=== PATIENT | female | born 1955 | race Caucasian/White ===

== ENCOUNTER → 2020-04-27 08:27 | Outpatient (CLI) | payer MEDICARE, SELFPAY ==
--- NOTE | ~2020-04-27 | MR_ITS ---
EXAMINATION: MR foot LT wo con DATE: 04/27/2020 10:18 INDICATION: Benign neoplasm of connective and other soft tissue. Enlarging left foot lump. TECHNIQUE: Magnetic resonance imaging (MRI) of the left foot was performed without intravenous contra st. Sequences included sagittal T1-weighted FSE, sagittal fluid sensitive FSE STIR, coronal PD-weight ed FS FSE, coronal T1-weighted FSE, axial PD-weighted FS FSE, and axial PD-weighted FSE. COMPARISON: None FINDINGS: Bone alignment is normal. No fracture or pathologic marrow replacing process. Polyarticular osteoarth ritis, severe at the second metatarsophalangeal joint with associated remodeling of the articular jason faces with prominent subarticular edema and with small to moderate size marginal osteophytes and smal l joint effusion. Moderate severity osteoarthritis at the first metatarsophalangeal joint and at the second tarsal metatarsal joint. Mild osteoarthritis at the tibiotalar, talonavicular and majority the remaining joints in the mid and forefoot. There is a multiloculated ganglion cyst arising from the m edial side of the first tarsal metatarsal joint which extends dorsal to the medial cuneiform which me asures approximately 3.0 cm proximal to distal, 2.0 cm medial to lateral and 7 mm in maximal thicknes s. This immediately underlies the marker indicating the lesion of concern. There is an additional lar karol multilobulated ganglion cyst arising from the posterior recess of the ankle which extends caudall y along the medial side of the calcaneus within or along the deep margin of the tarsal tunnel. This g anglion cyst measures approximately 3.3 cm dorsal plantar, 2.6 cm anteroposteriorly and up to 1.1 cm in medial to lateral width. Finally there are smaller ganglion cysts measuring 8 x 3 x 4 mm along the dorsal/medial aspect of the first distal phalanx arises from the distal interphalangeal joint and 9 x 6 x 3 mm lung the lateral neck of the first metatarsal rising from the first metatarsophalangeal gabrielle int. The visualized portions of the flexor and extensor tendons are normal. Small amount fluid along the tibialis posterior, flexor digitorum longus and peroneal tendon sheaths consistent with mild teno synovitis. The Lisfranc ligament and collateral ligament complexes at the metatarsophalangeal and int erphalangeal joints appear normal. Normal muscle bulk and signal of the intrinsic musculature of the foot. No abnormal masses identified. IMPRESSION: 1. Several ganglion cysts in the left foot as detailed above. This includes a ganglion cyst arising f rom the first tarsal metatarsal joint which extends dorsal to the medial cuneiform and likely account s for the palpable abnormality of concern. No abnormal masses identified. 2. Polyarticular osteoarthritis, severe at the second and moderate at the first metatarsophalangeal j oints and mild at multiple additional joints throughout the left foot. Reviewed, dictated and finalized at location A. IMPRESSION: 1. Several ganglion cysts in the left foot as detailed above. This includes a g anglion cyst arising from the first tarsal metatarsal joint which extends dorsa l to the medial cuneiform and likely accounts for the palpable abnormality of c oncern. No abnormal masses identified. 2. Polyarticular osteoarthritis, severe at the second and moderate at the first metatarsophalangeal joints and mild at multiple additional joints throughout t he left foot.
== END ==
PROVIDERS: PCP Internal Medicine; Visit Provider Podiatrist Foot & Ankle Surgery
DX: D21.22 Benign neoplasm of connective and other soft tissue of left lower limb, including hip (principal); M21.6X1 Other acquired deformities of right foot; M25.775 Osteophyte, left foot; M19.072 Primary osteoarthritis, left ankle and foot
CPT/HCPCS: 73718

== ENCOUNTER 2022-07-27 01:11 | Day surgery (SDC) | payer MEDICARE, SELFPAY ==
[2022-07-19 11:08] VITALS: BMI 24.2
[2022-07-27 09:25] VITALS: BP 140/80; PULSE 73; RESP 18; TEMP 35.8; O2SAT 100; BMI 23.3
[2022-07-27] MEDS: LACTATED RINGERS 1,000 ML 150 ML IV CONT (09:47)
--- NOTE | 2022-07-27 09:49 | WPDANESEPPF ---
Anes - Initial Pre Proc Eval Procedure: Operation Date: 07/27/22 11:00 Proposed Procedures p Screening Colonoscopy - Gabe Restrepo MD Date/Time: 07/27/22 09:49 Surgeon: Gabe Restrepo MD Pre Op Diagnosis: Hx of colon polyps Patient Data Age: 67 Gender: F Height: 1.63 m Weight: 61.7 kg Last Vital Signs Temp 35.8 C L 07/27/22 09:25 Pulse 73 07/27/22 09:25 Resp 18 07/27/22 09:25 BP 140/80 07/27/22 09:25 Pulse Ox 100 07/27/22 09:25 O2 Del Method Room Air 07/27/22 09:25 Allergies Allergy/AdvReac Type Severity Reaction Status Date / Time codeine Allergy Unknown Nausea and Verified 07/27/22 09:34 Vomiting Penicillins AdvReac Unknown Difficulty Verified 07/27/22 09:34 Breathing Home Medications Medication Instructions Recorded Confirmed Type atorvastatin 20 mg tablet 20 mg PO DAILY 04/27/22 07/27/22 History meloxicam 15 mg tablet 15 mg PO DAILY 04/27/22 07/27/22 History medroxyprogesterone 2.5 mg tablet 2.5 mg PO DAILY #90 tabs 06/15/22 07/27/22 Rx (Provera) estradiol 1 mg tablet 1 mg PO DAILY #90 tabs 06/22/22 07/27/22 Rx calcium carbonate 500 mg calcium 500 mg PO DAILY 07/19/22 07/27/22 History (1,250 mg) tablet omega-3 fatty acids 1,000 mg PO DAILY 07/19/22 07/27/22 History Patient hx anesthesia problems: none Family hx anesthesia problems: none Results Review: All pre-operative results and documents have been reviewed as part of the pre-operative evaluation. [facility] Past Medical History Medical History (Updated 04/27/22 @ 10:26 by Thiago Echols MD) Arthritis High cholesterol Lumbar radiculopathy, chronic Sciatica Screening mammogram, encounter for Surgical History Surgical History History of back surgery (~2010) History of breast biopsy bilateral breast biopsy 1983, 1990 History of (1984) History of carpal tunnel surgery 1989, 1991 History of dilation and curettage 1974, 1980, 1981, 1983 History of discectomy (04/21/14) History of ear, nose, and throat (ENT) surgery (~1968) hole in right eardrum History of elbow surgery 1989 tennis elbow History of hand surgery 2014 right thumb nerve reroute for trigger finger 2016 right ring finger trigger release, right thumb trigger release and right wrist release History of shoulder replacement (10/06/19) left shoulder History of surgery on arm 1970 broke left arm History of tubal ligation (~1983) Family History Family History Father Heart disease Mother Motor vehicle accident (victim) Social History Social History (Updated 04/27/22 @ 09:49 by CALVIN Murillo) Smoking status: Former smoker Tobacco type: cigarettes Alcohol intake: current Drinks per week: 4 Alcohol use details: 2-3 socially Substance use: current Substance use type: marijuana Other substance usage details: medical for joint and back pain Living arrangements: with family Additional living arrangements comments: Gender identity (if verbalized by the patient): Female Sexual Orientation (if Verbalized by the Patient): Straight or Heterosexual Spiritual care concerns: No Anes - Eval Final PreProcedure Day of Procedure 07/27/22 09:49 Patient weight: normal Heart: regular rate and rhythm Lungs: clear to auscultation and normal air movement Airway: Mallampati scale class II Neurological: alert and oriented Last oral intake: >/= 8 hours ASA classification: II Emergent: no Anesthetic plan: proceed Anesthesia type and monitoring: general GIVS Results Review: All pre-operative results and documents have been reviewed as part of the pre-operative evaluation. Informed Consent: The patient's anesthetic plan and its attendant risks and benefits were discussed with the patient/family/POA. Questions were solicited and answers provided to the satisfaction o
--- NOTE | 2022-07-27 10:26 | PM.HPGS ---
History of Present Illness History of Present Illness Consent: Risks, benefits, and alternatives have been discussed and questions answered. Patient agrees to proceed with procedure. Chief complaint: Hx of colon polyps Narrative: Jenny Blackmon is a 67 year old female Presents for screening colonoscopy. Patient's current weight appetite and bowel movements are normal. Patient denies abdominal pain. She has had no bleeding. Family history noncontributory. Patient had a colonoscopy in [address] Caldwell that revealed a benign hyperplastic polyp. Review of Systems Review of Systems: Review of systems noncontributory. [facility] Past Medical History Medical History (Updated 07/27/22 @ 10:27 by Gabe Restrepo MD) Arthritis High cholesterol Lumbar radiculopathy, chronic Sciatica Screening mammogram, encounter for Surgical History Surgical History History of back surgery (~2010) History of breast biopsy bilateral breast biopsy 1983, 1990 History of (1984) History of carpal tunnel surgery 1989, 1991 History of dilation and curettage 1974, 1980, 1981, 1983 History of discectomy (04/21/14) History of ear, nose, and throat (ENT) surgery (~1968) hole in right eardrum History of elbow surgery 1989 tennis elbow History of hand surgery 2014 right thumb nerve reroute for trigger finger 2016 right ring finger trigger release, right thumb trigger release and right wrist release History of shoulder replacement (10/06/19) left shoulder History of surgery on arm 1971 broke left arm History of tubal ligation (~1983) Family History Family History Father Heart disease Mother Motor vehicle accident (victim) Social History Social History (Updated 04/27/22 @ 09:49 by CALVIN Murillo) Smoking status: Former smoker Tobacco type: cigarettes Alcohol intake: current Drinks per week: 4 Alcohol use details: 2-3 socially Substance use: current Substance use type: marijuana Other substance usage details: medical for joint and back pain Living arrangements: with family Additional living arrangements comments: Gender identity (if verbalized by the patient): Female Sexual Orientation (if Verbalized by the Patient): Straight or Heterosexual Spiritual care concerns: No Meds Home Medications and Allergies Home Medications Medication Instructions Recorded Confirmed Type atorvastatin 20 mg tablet 20 mg PO DAILY 04/27/22 07/27/22 History meloxicam 15 mg tablet 15 mg PO DAILY 04/27/22 07/27/22 History medroxyprogesterone 2.5 mg tablet 2.5 mg PO DAILY #90 tabs 06/15/22 07/27/22 Rx (Provera) estradiol 1 mg tablet 1 mg PO DAILY #90 tabs 06/22/22 07/27/22 Rx calcium carbonate 500 mg calcium 500 mg PO DAILY 07/19/22 07/27/22 History (1,250 mg) tablet omega-3 fatty acids 1,000 mg PO DAILY 07/19/22 07/27/22 History Allergies Allergy/AdvReac Type Severity Reaction Status Date / Time codeine Allergy Unknown Nausea and Verified 07/27/22 09:34 Vomiting Penicillins AdvReac Unknown Difficulty Verified 07/27/22 09:34 Breathing Vital Signs Vital Signs - 24 hr 07/27/22 09:25 Temperature 96.5 F L Pulse Rate 73 Respiratory Rate 18 Blood Pressure 140/80 Pulse Oximetry 100 Oxygen Delivery Room Air Exam Narrative: Physical exam reveals patient to be alert. Vital signs stable. HEENT exam is unremarkable. Patient is anicteric. Lungs are clear to auscultation and percussion. Heart is without murmur or extra sounds. Abdomen bowel sounds present soft nontender with no organomegaly. Digital external rectal exam normal. Assessment and Plan Assessment and plan (1) Encounter for screening colonoscopy: Code(s): Z12.11 - Encounter for screening for malignant neoplasm of colon Status: Acute Assessment and Plan:
[2022-07-27] MEDS: SIMETHICONE ORAL SUSPENSION 20 MG/0.3 ML 30 ML BOTTLE 0.6 ML IRRIGATION (11:08)
[2022-07-27 11:26] VITALS: BP 122/76; PULSE 79; RESP 21; O2SAT 100
[2022-07-27 11:36] VITALS: BP 134/80; PULSE 75; RESP 20; O2SAT 100
[2022-07-27 11:46] VITALS: BP 148/84; PULSE 68; RESP 18; O2SAT 100
== END 2022-07-27 11:59 | disposition home or self-care (01) ==
PROVIDERS: PCP Internal Medicine; Visit Provider Internal Medicine Gastroenterology
PROC: 0DJD8ZZ Inspection of Lower Intestinal Tract, Via Natural or Artificial Opening Endoscopic (ICD-10-PCS; CPT 45378; principal; 2022-07-27 11:00)
DX: Z12.11 Encounter for screening for malignant neoplasm of colon (principal); K63.5 Polyp of colon; E78.00 Pure hypercholesterolemia, unspecified; F12.90 Cannabis use, unspecified, uncomplicated; Z87.891 Personal history of nicotine dependence
CPT/HCPCS: 45385; 88305; J2704; J7120

== ENCOUNTER 2022-10-13 10:08 | Outpatient (CLI) | payer MEDICARE, SELFPAY ==
[2022-10-13 10:21] LABS: Basophils Absolute Auto 0.1 K/mm3 (0.0-0.1); Basophils Percent Auto 0.8 % (0.2-1.2); Eosinophils Absolute Auto 0.3 K/mm3 (0-0.3); Eosinophils Percent Auto 5.2 % (0-4.4); Hematocrit 40.2 % (37.0-47.0); Hemoglobin 13.4 g/dL (12.0-15.0); Immature Granulocyte Absolute 0.01 K/mm3 (0.00-0.031); Immature Granulocyte Percent A 0.2 % (0-0.5); Lymphocytes Absolute Auto 2.72 K/mm3 (0.9-3.2); Lymphocytes Percent Auto 44.1 % (18.3-44.2); Mean Corpuscular HGB Conc 33.3 g/dl (32-36); Mean Corpuscular Hemoglobin 30.3 pg (26-34); Mean Platelet Volume 9.1 fl (7.4-10.4); Monocytes Absolute Auto 0.5 K/mm3 (0.1-0.6); Monocytes Percent Auto 8.4 % (2.6-8.5); Neutrophils Absolute Auto 2.6 K/mm3 (1.3-6.7); Neutrophils Percent Auto 41.3 % (45.5-73.1); Platelet Count Result 208 k/mm3 (150-375); Red Blood Count 4.42 M/mm3 (4.2-5.4); Red Cell Distribution Width 12.7 % (11.5-14.5); White Blood Count 6.2 K/mm3 (4.5-10.0)
[2022-10-13 11:43] LABS: Erythrocyte Sedimentation Rate 18 mm/hr (0-20)
[2022-10-13 11:47] LABS: Alanine Aminotransferase 21 U/L (6-35); Alkaline Phosphatase 70 U/L (38-126); Anion Gap 5 mmol/L (8-16); Aspartate Amino Transferase 23 U/L (14-36); Bilirubin,Total 0.5 mg/dL (0.2-1.3); Blood Urea Nitrogen 17 mg/dL (7-17); Calcium 9.4 mg/dL (8.4-10.2); Carbon Dioxide 31 mmol/L (22-30); Chloride 105 mmol/L (98-107); Estimated Glomerular Filt Rate > 60; Glucose 93 mg/dL (65-110); Potassium 3.8 mmol/L (3.4-5.0); Sodium 141 mmol/L (137-145)
[2022-10-13 11:56] LABS: CRP < 0.5 mg/dL (<1.0)
[2022-10-17 21:02] LABS: Anti Cyclic Citrullinated Pept <16 Units (<20)
== END 2022-10-13 10:09 | disposition home or self-care (01) ==
LOC: ANHLAB 10:10
PROVIDERS: PCP Internal Medicine; Visit Provider Internal Medicine
DX: M19.90 Unspecified osteoarthritis, unspecified site (principal)
CPT/HCPCS: 36415; 80053; 85025; 85652; 86038; 86140; 86200

== ENCOUNTER 2022-10-18 10:13 | Outpatient (CLI) | payer MEDICARE, SELFPAY ==
--- NOTE | ~2022-10-18 | XR_ITS ---
Bilateral Hands Technique: Bilateral PA, oblique, and lateral views, and ball-catcher's view were obtained. Clinical History: Arthritis Findings: No acute fracture or dislocation is seen. Patient is status post prior resection of the lef t trapezium. Minimal degenerative change of the DIP joints noted bilaterally. Soft tissues are unrema rkable. Impression: Minimal degenerative change of the DIP joints bilaterally. Status post prior resection of the left trapezium. Reviewed, dictated and finalized at location M. TRICAL CONTRACTOR Impression: Minimal degenerative change of the DIP joints bilaterally. Status post prior resection of the left trapezium.
--- NOTE | ~2022-10-18 | XR_ITS ---
Left foot Technique: AP and lateral standing views were obtained. Clinical History: Osteoarthritis Findings: No acute fracture or dislocation is seen. Osseous alignment is anatomic. Probable mild dege nerative change at the second MTP joint. Soft tissues are unremarkable. Impression: Mild degenerative change of the second MTP joint. Reviewed, dictated and finalized at [facility]. E COORDINATOR Impression: Mild degenerative change of the second MTP joint.
--- NOTE | ~2022-10-18 | XR_ITS ---
Right foot Technique: AP and lateral standing views were obtained. Clinical History: Osteoarthritis Findings: No acute fracture or dislocation is seen. Osseous alignment is anatomic. Joint spaces are p reserved without erosive or degenerative change. Soft tissues are unremarkable. Impression: Unremarkable right foot radiographs. Reviewed, dictated and finalized at location . OPERATOR Impression: Unremarkable right foot radiographs.
== END 2022-10-18 10:14 | disposition home or self-care (01) ==
LOC: ANHIMG 10:17
PROVIDERS: PCP Internal Medicine; Visit Provider Internal Medicine
DX: M19.90 Unspecified osteoarthritis, unspecified site (principal); M19.072 Primary osteoarthritis, left ankle and foot
CPT/HCPCS: 73130; 73620

== ENCOUNTER 2024-10-20 10:42 | Outpatient (CLI) | payer MEDICARE, SELFPAY ==
--- NOTE | ~2024-10-20 | XR_ITS ---
EXAMINATION: XR shoulder RT min 2V, XR shoulder LT min 2V DATE: 10/20/2024 11:03 INDICATION: Bilateral shoulder pain TECHNIQUE: 1. AP internally and externally rotated, AP oblique externally rotated and transscapular Y views of t he right shoulder were obtained. 2. AP internally and externally rotated, AP oblique externally rotated and transscapular Y views of t he left shoulder were obtained. COMPARISON: None FINDINGS: Right shoulder: Normal alignment. No fracture. Mild glenohumeral osteoarthritis with mild nonuniform joint space robert rowing. Mild to moderate right acromioclavicular osteoarthritis with small inferiorly directed osteop hytes. Soft tissues are unremarkable. Right lung is clear with no pleural effusion or pneumothorax. H eart size is normal. Left shoulder: Left total shoulder arthroplasty which appears well seated in near-anatomic alignment. No fracture. M ild left acromioclavicular osteoarthritis. Left lung is clear with no pleural effusion or pneumothora x. IMPRESSION: 1. Polyarticular osteoarthritis at both shoulders, mild left acromioclavicular, right humeral joints and mild to moderate severity at the right acromioclavicular joint. 2. Expected appearance of a left total shoulder arthroplasty. Reviewed, dictated and finalized at location A. CUTTER MACHINE IMPRESSION: 1. Polyarticular osteoarthritis at both shoulders, mild left acromioclavicular, right humeral joints and mild to moderate severity at the right acromioclavicu lar joint. 2. Expected appearance of a left total shoulder arthroplasty.
== END 2024-10-20 10:43 | disposition home or self-care (01) ==
LOC: MICIMG 10:44
PROVIDERS: PCP Internal Medicine; Visit Provider Anesthesiology Pain Medicine
DX: M25.511 Pain in right shoulder (principal); M25.512 Pain in left shoulder; Z96.612 Presence of left artificial shoulder joint
CPT/HCPCS: 73030

== ENCOUNTER 2025-01-19 12:37 | Outpatient (CLI) | payer MEDICARE, SELFPAY ==
--- NOTE | ~2025-01-19 | MR_ITS ---
MRI of the cervical spine Clinical History: Anesthesia of skin Technique: Axial T2-weighted and gradient images, and sagittal T1-weighted, T2-weighted, and STIR pushpa ges were acquired. Findings: No fracture or sublocation seen. There is mild reversal of the normal cervical lordosis. No suspicious bone marrow signal abnormality seen. At C2-C3, there is minimal disc ossify complex and bilateral facet arthropathy. There is probable lef t neural foraminal narrowing, minimal. Right neural foramen preserved. No canal stenosis or cord comp ression. At C3-C4 there is mild degenerative disc narrowing with mild disc osteophyte complex. There is mild b ilateral facet arthropathy. Probable minimal bilateral neural foraminal narrowing. No canal stenosis or cord compression. At C4-C5, there is degenerative distended. There is disc osteophyte complex with moderate canal steno sis and ventral cord flattening/compression. There is bilateral neural foraminal narrowing, moderate to severe degree. At C5-C6, there is moderate to advanced degenerative distended. There is central disc osteophyte comp cathi or disc extrusion with moderate to severe canal stenosis and cord compression. There is severe bi lateral neural foraminal narrowing. At C6-C7, there is moderate degenerative distended. There is disc osteophyte complex with moderate ca nal stenosis and cord compression. There is bilateral neural foraminal narrowing. No abnormal signal seen in the spinal cord. Paravertebral soft tissues are unremarkable. Impression: Severe degenerative spondylosis, especially at C4-C5, C5-C6, and C6-C7, with significant canal stenos is and cord compression at these levels. Multilevel neural foraminal narrowing present. Please see de tails above. Reviewed, dictated and finalized at [facility]. Impression: Severe degenerative spondylosis, especially at C4-C5, C5-C6, and C6-C7, with si gnificant canal stenosis and cord compression at these levels. Multilevel neura l foraminal narrowing present. Please see details above.
== END 2025-01-19 12:38 | disposition home or self-care (01) ==
PROVIDERS: PCP Internal Medicine; Visit Provider Orthopaedic Surgery
DX: R20.0 Anesthesia of skin (principal); R20.2 Paresthesia of skin; M47.22 Other spondylosis with radiculopathy, cervical region
CPT/HCPCS: 72141

== ENCOUNTER 2025-07-17 10:07 | Outpatient (CLI) | payer MEDICARE, SELFPAY ==
--- OUTSIDE RECORDS SUMMARY | 2025-07-17 10:51 | XMS_ITS | Encounter Summary ---
Author Organization [facility] Health Address [address] [place] [address] Care Team Providers Care Repairer Pump Name Role Phone Theodora Juarez RN Unavailable [phone] Malcolm Varma MD Primary Care Provider Encounter Details Date Type Department Care Team (Late st Contact Info) Description 06/24/2019 [facility] Outpatient Visit EXTERNAL NON-[facility] DEPT Unknown, Provider Social History Tobacco Use Types Packs/Day Years Used Date Smoking Tobacco: Former Cigarettes Q uit: 04/21/1999 Smokeless Tobacco: Never Alcohol Use Standard Drinks/Week Comments No 0 (1 standard drink = 0.6 oz pur e alcohol) Comments No Sex and Gender Information Value Date Recorded Sex Assigned at Not on file Legal Sex Female 1:35 PM CDT Gender Identity Not on file Sexual Orientation Not on file Occupation Industry Job Start Date Job End Date NOT EMPLOYED Not on file Not on file Not on file documented as of this encounter Functional Status * Is person deaf or have serious hearing difficulty? Answer Date of Assessment Author No 04/21/2014 3:00 PM BLADIMIRT Jeet Sotomayor RN * Is person blind or have serious difficulty seeing? Answer Date of Assessment Author No 04/21/2014 3:00 PM CDT Jeet Sotomayor RN * Does person have serious difficulty walking/climbing stairs? Answer Date of Assessment Author Yes 04/21/2014 3:00 PM BLADIMIRT Jeet Sotomayor RN * Does person have difficulty dressing/bathing? Answer Date of Assessment Author No 04/21/2014 3:00 PM Jeet Mercer RN * Does person have difficulty doing errands alone? Answer Date of Assessment Author No 04/21/2014 3:00 PM Jeet Mercer RN documented as of this encounter Mental Status * Does person have difficulty concentrating/remembering/making decisions? Answer Entry Date Author No 04/21/2014 3:00 PM Jeet Mercer RN documented in this encounter Plan of Treatment Not on file documented as of this encounter Visit Diagnoses Not on filedocumented in this encounter Care Teams Repairer Pump Relationship Specialty Start Date End Date Malcolm Varma MD PCP - General Internal Medicine 08/10/17 Theodora Juarez RN Bank Teller Machine Mechanic 04/21/14 documented as of this encounter
--- OUTSIDE RECORDS SUMMARY | 2025-07-17 10:51 | XMS_ITS | Encounter Summary ---
Author Organization [facility] Health Address [address] [place] [address] Care Team Providers Care Test Desk Trouble Locator Name Role Phone Theodora Juarez RN Unavailable [phone] Malcolm Varma MD Primary Care Provider [phone] Encounter Details Date Type Department Care Team (Late st Contact Info) Description 04/22/2019 [facility] Outpatient Visit EXTERNAL NON-[facility] DEPT Unknown, [...] on filedocumented in this encounter Care Teams Test Desk Trouble Locator Relationship Specialty Start Date End Date Malcolm Varma MD PCP - General Internal Medicine 08/10/17 Theodora Juarez RN Design Engineering Manager 04/21/14 documented as of this encounter
--- OUTSIDE RECORDS SUMMARY | 2025-07-17 10:51 | XMS_ITS | Clinical Summary ---
Author Organization [facility] Address [address] [place] [address] Care Team Providers Care Laborer Landscape Name Role Phone Theodora Juarez RN Unavailable [phone] Malcolm Varma MD Primary Care Provider [phone] Source Comments [facility],non-owned Affiliates and Associated Physician Practices is amultiple site organization consisting of ambulatory clinics and hospital sitesin [place], [place], [place] and [place]. This disclosure is being madepursuant to the Care Everywhere program and may not contain all information available regarding this patient. Last updated 18.[facility] Allergies Active Allergy Reactions Criticality Noted Date Comments Codeine Diarrhea,Nausea and/ or Vomiting,Headache 03/31/2013 Penicillins Shortness of Breath,Itching,Swelling High 03/31/2013 Medications * Be aware that medications may not be up to date on this document. Alwaysverify current medications with the patient. naproxen (NAPROSYN) 500 MG tablet Take 500 mg by mouth 2 times daily. Active diclofenac sodium EC (VOLTAREN) 50 MG tablet Take 1 Tab by mouth 2 times daily 60 Tab 11 06/14/2015 Active Potassium (POTASSIMIN PO) Acti ve Cholecalciferol ([employer] VIT D 5000 HIGH-POTENCY PO) Active atorvastatin (LIPITOR) 20 MG tablet Take 20 mg by mouth once daily Active LOPREEZA 1-0.5 MG tablet 01/20/2019 Active loratadine (CLEAR-ATADINE) 10 MG tablet Take 10 mg by mouth once daily Active BLACK CURRANT SEED OIL PO Active Multiple Vitamins-Minera ls (CENTRUM SILVER PO) Active CBD oil Active CBD product (various) Active pregabalin (LYRICA) 25 MG capsule Take 1 capsule by mouth 2 times daily 60 capsule 1 05/08/2019 Active Active Problems Problem Noted Date Diagnosed Date Low back pain 04/07/2013 Overview (07/18/2015): Family History Medical History Relation Name Comments CAD (Coronary Artery Disease) Father Heart Failure Father Relation Name Status Comments Brother 1 Alive Brother 2 Alive Father Mother Sister 1 Alive Sister 2 Social History Tobacco Use Types Packs/Day Years [...] file Not on file Not on file Last Filed Vital Signs Vital Sign Reading Time Taken Comments Blood Pressure 122/74 08/21/2017 12:21 PM FLOORWORKER DISTRIBUTOR Pulse 85 08/21/2017 12:21 PM FLOORWORKER DISTRIBUTOR Temperature 36.9 C (98.4 F) 04/23/2014 7:54 AM CDT Respiratory Rate 16 08/21/2017 12:21 PM FLOORWORKER DISTRIBUTOR Oxygen Saturation 99% 08/21/2017 12:21 PM FLOORWORKER DISTRIBUTOR Inhaled Oxygen Concentration - - Weight 65.8 kg (145 lb) 04/08/2019 1:46 PM CDT Height 167.6 cm (5' 6) 04/08/2019 1:46 PM CDT Body Mass Index 23.4 04/08/2019 1:46 PM CDT Plan of Treatment Health Maintenance Due Date Last Done Comments BONE DENSITY TESTING 1955 COLOGUARD (AGES 45-75) - COLON CA SCREENING 1957 COLON MONITORING 1957 COLONOSCOPY - COLON CA SCREENING 1957 CT COLONOGRAPHY - COLON CA SCREENING 1957 Colorectal Cancer Screening 1957 FIT - COLON CA SCREENING 1957 FLEX SIG - COLON CA SCREENING 1957 MAMMOGRAM 1957 HEPATITIS C SCREENING 04/25/1975 DTAP/TDAP/TD VACCINES (1 - Tdap) 1976 PNEUMOCOCCAL VACCINE 50+ (1 of 1 - PCV) 2007 ZOSTER VACCINE (1 of 2) 2007 DEPRESSION SCREENING 09/10/2024 COVID-19 VACCINE (1 - season) 2025 INFLUENZA VACCINE (#1) 2025 9, 07/11/2018, 07/17/2017, Additional history exists Respiratory Syncytial Virus (RSV) Vaccine Pt: or over 60 yrs (1 - 1-dose 75+ series) 2032 HEPATITIS B VACCINE Aged Out No longe r eligible based on patient's age to complete this topic HIB VACCINE Aged Out No longer eligi ble based on patient's age to complete this topic HPV VACCINE Aged Out No longer eligi ble based on patient's age to complete this topic MENINGOCOCCAL (Group B) VACCINE SHARED DECISION-MAKING Aged Out No longer eligible based on patient's age to complete this topic MENINGOCOCCAL GROUPS A/C/Y/W VACCINE Aged Out No longer eligible based on patient's age to complete this topic Insurance AETNA [facility] Care Address: [facility] [id number] [place] [phone] A[employer] [place] PREFERRED A[employer] ANTH Advance Directives * Full Code (Latest Code Status on File) Date Activated Date Inactivated Comments 04/21/2014 2:29 PM 04/23/2014 11:04 AM Care Teams Laborer Landscape Relationship Specialty Start Date End Date Malcolm Varma MD PCP - General Internal Medicine 08/10/17 Theodora Juarez, RN Heat Regulator 04/21/14
[2025-07-17 11:07] LABS: CRP < 0.5 mg/dL (<1.0)
[2025-07-18 12:08] LABS: Anti-CCP Ab, IgG/IgA 7 units (0-19)
[2025-07-21 15:09] LABS: ANA by IFA Rfx Titer/Pattern Positive (.); ANA by IFA Rfx YES YES
== END 2025-07-17 10:08 | disposition home or self-care (01) ==
PROVIDERS: PCP Internal Medicine; Visit Provider Orthopaedic Surgery
DX: M79.641 Pain in right hand (principal); M79.642 Pain in left hand; R20.0 Anesthesia of skin; R20.2 Paresthesia of skin
CPT/HCPCS: 36415; 85652; 86038; 86140; 86200; 86364; 86430

== ENCOUNTER 2025-08-03 21:01 | Emergency (ER) | payer MEDICARE, SELFPAY ==
--- NOTE | ~2025-08-03 | CT_ITS ---
CT abdomen pelvis w con Clinical History: Colitis Comparison: None Technique: Axial images lung bases to symphysis pubis 100 mL Omnipaque 350 Coronal, sagittal reformats CT images acquired with automatic exposure control for dose reduction DLP: 433 mGy-cm Findings: Lung bases: Small atelectasis or airspace disease lingula. Visualized heart and pericardium: Coronary artery calcification. Liver: Steatosis. Mild intrahepatic biliary ductal dilatation after cholecystectomy. Gallbladder: Removed. Spleen: Unremarkable. Pancreas: Unremarkable. Adrenal glands: Unremarkable. Kidneys: Right kidney- No hydronephrosis. No renal stones. Left kidney- No hydronephrosis. No renal stones. Distal esophagus/stomach: Unremarkable. Small bowel loops: Normal caliber and wall thickness. Colon: Diverticula. Apparent mild diffuse wall thickening but under distended. Normal RLQ appendix. Nodes: No enlarged nodes. Peritoneum: No ascites. No free air. Urinary bladder: Unremarkable. Uterus: Unremarkable. Adnexa: No masses. Bones: No acute bony abnormality. Soft tissues: Unremarkable. Aorta: No aneurysm or dissection. Atherosclerotic disease. IVC: Unremarkable. Main portal vein/SMV/splenic vein: Patent. IMPRESSION: 1. Suspect mild colitis. 2. Additional findings as above. Reviewed, dictated and finalized at location R. 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
--- NOTE | ~2025-08-03 | XR_ITS ---
EXAMINATION: XR chest 2V DATE: 08/03/2025 21:36 INDICATION: Epigastric pain. TECHNIQUE: Frontal and lateral views of the chest were obtained. COMPARISON: None. FINDINGS: Heart size is normal. Lungs are clear of acute processes. Significant scoliosis of the lumbar spine. IMPRESSION: 1. No acute pulmonary findings. Reviewed, dictated and finalized at location T. S ANALYST
[2025-08-03 21:04] VITALS: BP 127/68; PULSE 83; RESP 16; TEMP 36.4; O2SAT 100
--- NOTE | 2025-08-03 21:09 | ECG_ITS ---
Test Date: 2025-08-03 21:14:55 Measurements Intervals [place] Rate: 71 P: 31 NH: 144 QRS: -41 QRSD: 85 T: 26 QT: 365 QTc: 398 Interpretive Statements SINUS RHYTHM LEFTWARD AXIS NONSPECIFIC T-WAVE ABNORMALITY No previous ECG available for comparison Electronically Signed On 08-04-2025 05:54:21 CHEMICALS FERMENTATION OPERATOR by Ricardo Hinojosa D.O
[2025-08-03 21:28] LABS: Hematocrit 39.9 % (37.0-47.0); Hemoglobin 13.5 g/dL (12.0-15.0); Immature Granulocyte Percent A 0.2 % (0-0.5); Lymphocytes Absolute Auto 1.09 K/mm3 (0.9-3.2); Mean Corpuscular HGB Conc 33.8 g/dl (32-36); Mean Corpuscular Hemoglobin 30.1 pg (26-34); Mean Corpuscular Volume 89.1 fl (80-100); Nucleated Red Blood Cells Absolute Auto 0.000 K/mm3 (0.0-0.012); Nucleated Red Blood Cells Perc 0.0 % (0.0-0.2); Platelet Count Result 144 k/mm3 (150-375); Red Blood Count 4.48 M/mm3 (4.2-5.4); White Blood Count 4.4 K/mm3 (4.5-10.0)
[2025-08-03 21:39] LABS: Alanine Aminotransferase 29 U/L (6-35); Albumin Level 4.1 g/dL (3.5-5.1); Alkaline Phosphatase 79 U/L (38-126); Anion Gap 8 mmol/L (4-12); Aspartate Amino Transferase 39 U/L (14-36); Bilirubin,Total 0.4 mg/dL (0.2-1.3); Blood Urea Nitrogen 14 mg/dL (7-17); Calcium 8.6 mg/dL (8.4-10.2); Carbon Dioxide 23 mmol/L (22-30); Chloride 103 mmol/L (98-107); Estimated CRCL calculation 74 ml/min; Estimated Glomerular Filt Rate > 60; Glucose 101 mg/dL (65-110); Potassium 3.2 mmol/L (3.4-5.0); Sodium 134 mmol/L (137-145); Total Protein 7.5 g/dL (6.3-8.2)
[2025-08-03 21:40] LABS: INR 1.1; Prothrombin Time 14.1 Seconds (11.1-14.7)
[2025-08-03 21:48] LABS: Partial Thromboplastin Time 26.5 Seconds (22.3-36.8)
[2025-08-03 21:51] LABS: Troponin I < 0.012 ng/mL (0.000-0.034)
[2025-08-03 22:33] VITALS: BP 106/58; PULSE 64
[2025-08-03 22:34] VITALS: BP 128/66; PULSE 81
[2025-08-03 22:35] VITALS: BP 119/80; PULSE 72
[2025-08-03 22:48] VITALS: BP 118/80; PULSE 67; RESP 16; TEMP 37.2; O2SAT 97
[2025-08-03 23:15] VITALS: BP 128/61; PULSE 72; RESP 14; O2SAT 98
--- NOTE | 2025-08-03 23:45 | ED.ABDPAIN ---
HPI - Abdominal Pain General Chief Complaint: GI Bleed Stated Complaint: bleeding in stool/N/V/LILLY Time Seen by Provider: 08/03/25 23:16 History of Present Illness HPI narrative: 70-year-old female with history of arthritis presenting to the emergency department today with 2 days of nausea vomiting followed by upper abdominal cramping and then today having some bowel movements that had blood in it. Denies any pain during the bloody bowel movements but notices that she had some blood in the toilet bowl admixed with stool that was loose. Endorses some cramping upper abdominal discomfort. Her daughter thinks that her under cook the food as he was also complaining of some symptoms at home yesterday. Denies any fever, chills. No cough or difficulty breathing. No chest discomfort. Was otherwise in her normal state of health. Tried taking some remedies at home but was vomiting so she did not tolerate them. History of cholecystectomy and . No recent abdominal surgeries and no recent antibiotics. Related Data Home Medications ?Medication ?Instructions ?Recorded ?Confirmed ?Last Taken ?Type atorvastatin 20 mg tablet 20 mg PO DAILY 04/27/22 05/13/25 Unknown History fluticasone propionate 50 1 spray intranasal DAILY 12/12/24 05/13/25 Unknown History mcg/actuation nasal spray,suspension meclizine 25 mg tablet 25 mg PO DAILY 12/12/24 02/09/25 Unknown History montelukast 10 mg tablet 10 mg PO DAILY 12/12/24 05/13/25 Unknown History Allergies Allergy/AdvReac Type Severity Reaction Status Date / Time codeine Allergy Unknown Nausea and Verified 08/03/25 21:08 Vomiting Penicillins AdvReac Unknown Difficulty Verified 08/03/25 21:08 Breathing Review of Systems Review of Systems: As reviewed above [facility] Past Medical History Medical History Neuropathy Encounter for Papanicolaou smear for cervical cancer screening Bilateral hand pain Generalized osteoarthritis of multiple sites Seronegative rheumatoid arthritis Inflammatory arthritis Screening mammogram, encounter for Lumbar radiculopathy, chronic Sciatica High cholesterol Arthritis Surgical History Surgical History History of ear, nose, and throat (ENT) surgery (~1968) hole in right eardrum History of breast biopsy bilateral breast biopsy 1983, 1990 History of (1984) History of tubal ligation (~1983) History of dilation and curettage 1974, 1980, 1981, 1983 History of surgery on arm 1971 broke left arm History of elbow surgery 1989 tennis elbow History of hand surgery 2015 right thumb nerve reroute for trigger finger 2016 right ring finger trigger release, right thumb trigger release and right wrist release History of carpal tunnel surgery 1989, 1991 History of back surgery (~2010) History of shoulder replacement (10/06/19) left shoulder History of discectomy (04/21/14) Family History Family History Father Heart disease Mother Motor vehicle accident (victim) Social History Social History Smoking status: Former smoker Tobacco type: cigarettes Second hand tobacco smoke exposure: No Smoking end date: 02/24/98 Alcohol intake: current Drinks per week: 4 Alcohol use details: 2-3 socially Substance use: current Substance use type: marijuana Other substance usage details: medical for joint and back pain Current Housing: Decline to Answer Concerned About Future Housing: Decline to Answer Difficulty Paying Gas/Electric Bills: Decline to Answer Difficulty Paying for Meds: Decline to Answer Currently Unemployed: Decline to Answer Education: Decline to Answer Difficulty w/ Childcare or Family Care: Decline to Answer Living arrangements: with family Additional living arrangements comments: Occupation/Education: retired Gender identity (if verbalized by the patient): Female Sexual Orientation (if Verbalized by the Patient): Straight or Heterosexual Spiritual care concerns: No Exam Narrative: GENERAL: [Well-appearing, well-nourished, and in no acute distress.] HEAD: [Normocephalic, atraumatic.] EYES: [PERRLA and EOMI.] ENT: Nares clear, no rhinorrhea or epistaxis. Mucous membranes moist. NECK: Supple. CHEST: [Clear to auscultation. No respiratory distress.] HEART: [Regular rate and rhythm]. No murmur heard. [Normal peripheral pulses.] ABDOMEN: [Soft, nondistended], [nontender], [No rigidity or guarding] EXTREMITIES: Normal range of motion. [No edema.] SKIN: Warm, dry, no rash. NEURO: [No focal deficits]. Alert and oriented [x3.] PSYCH: [Normal mood and affect.] Course Vital Signs Vital signs: Vital Signs Temperature 36.4 C 08/03/25 21:04 Pulse Rate 83 08/03/25 21:04 Respiratory Rate 16 08/03/25 21:04 Blood Pressure 127/68 08/03/25 21:04 Pulse Oximetry 100 08/03/25 21:04 Oxygen Delivery Room Air 08/03/25 21:04 Temperature 37.2 C 08/03/25 22:48 Pulse Rate 73 08/04/25 03:29 Respiratory Rate 18 08/04/25 03:29 Blood Pressure 123/67 08/04/25 03:29 Pulse Oximetry 97 08/04/25 03:29 Oxygen Delivery Room Air 08/03/25 22:48 MDM - Abdominal Pain MDM Narrative Medical decision making narrative: 70-year-old female with history of arthritis presenting to the emergency department today with 2 days of nausea vomiting followed by upper abdominal cramping and then today having some bowel movements that had blood in it. Denies any pain during the bloody bowel movements but notices that she had some blood in the toilet bowl admixed with stool that was loose. Endorses some cramping upper abdominal discomfort. Her daughter thinks that her under cook the food as he was also complaining of some symptoms at home yesterday. Denies any fever, chills. No cough or difficulty breathing. No chest discomfort. Was otherwise in her normal state of health. Tried taking some remedies at home but was vomiting so she did not tolerate them. History of cholecystectomy and . No recent abdominal surgeries and no recent antibiotics. Patient's examination is reassuring without any rebound, guarding, signs of peritonitis. No significant tenderness reproducible examination. She is hemodynamically stable without any tachycardia, fever, hypoxemia. Endorses some nauseousness but has not vomited since arrival. Likely some gastroenteritis or bacterial gastroenteritis secondary to the undercooked food at home. Possibility of some viral syndrome as well. Low suspicion intra-abdominal infection given the benign abdominal examination normal vitals. Given the bloody bowel movements and symptoms we did obtain a CT scan. Given fluids, Zofran, morphine and laboratory studies obtained. Laboratory studies are unremarkable. CT scan shows no acute intra-abdominal abnormality. No bowel obstruction or inflammation. Normal appendix. No hydronephrosis or calculus. Status post cholecystectomy. Patient felt significantly improved after re-evaluation and did not have any further nausea vomiting or diarrhea here. Maintained normal vital signs. Given the bloody diarrhea likely bacterial gastroenteritis from undercooked food based on the historical elements. We will send her with several days of ciprofloxacin for empiric treatment and Zofran as needed for symptom control. Patient and family comfortable with the plan and safe for discharge. Medical Records Attestation: I reviewed the patient's medical records. Lab Data Attestation: I reviewed the patient's lab results. 08/03/25 21:20 08/03/25 21:20 Labs: Lab Results 08/03/25 Range/Units 21:20 WBC 4.4 L (4.5-10.0) K/mm3 RBC 4.48 (4.2-5.4) M/mm3 Hgb 13.5 (12.0-15.0) g/dL Hct 39.9 (37.0-47.0) % MCV 89.1 (80-100) fl MCH 30.1 (26-34) pg MCHC 33.8 (32-36) g/dl RDW 12.9 (11.5-14.5) % Plt Count 144 L (150-375) k/mm3 MPV 9.3 (7.4-10.4) fl Immature Gran % (Auto) 0.2 (0-0.5) % Neut % (Auto) 65.4 (45.5-73.1) % Lymph % (Auto) 24.7 (18.3-44.2) % [place] % (Auto) 9.5 H (2.6-8.5) % Eos % (Auto) 0.0 (0-4.4) % Baso % (Auto) 0.2 (0.2-1.2) % Lymph # (Auto) 1.09 (0.9-3.2) K/mm3 [place] # (Auto) 0.4 (0.1-0.6) K/mm3 Eos # (Auto) 0.0 (0-0.3) K/mm3 Baso # (Auto) 0.0 (0.0-0.1) K/mm3 Abs Immat Gran (auto) 0.01 (0.00-0.031) K/mm3 Absolute Neuts (auto) 2.9 (1.3-6.7) K/mm3 Absolute Nucleated RBC 0.000 (0.0-0.012) K/mm3 Nucleated RBC % 0.0 (0.0-0.2) % PT 14.1 (11.1-14.7) Seconds INR 1.1 APTT 26.5 (22.3-36.8) Seconds Sodium 134 L (137-145) mmol/L Potassium 3.2 L (3.4-5.0) mmol/L Chloride 103 (98-107) mmol/L Carbon Dioxide 23 (22-30) mmol/L Anion Gap 8 (4-12) mmol/L BUN 14 (7-17) mg/dL Creatinine 0.53 L (0.7-1.0) mg/dL Estim Creat Clear Calc 74 ml/min Estimated GFR > 60 (59 - ) Glucose 101 (65-110) mg/dL Calcium 8.6 (8.4-10.2) mg/dL Total Bilirubin 0.4 (0.2-1.3) mg/dL AST 39 H (14-36) U/L ALT 29 (6-35) U/L Alkaline Phosphatase 79 (38-126) U/L Troponin I < 0.012 (0.000-0.034) ng/mL Total Protein 7.5 (6.3-8.2) g/dL Albumin 4.1 (3.5-5.1) g/dL Blood Type A Positive Antibody Screen Negative Imaging Data Attestation: I personally reviewed and interpreted this imaging study as follows: My impression: No acute abnormality Radiologist's impression: ITS Impressions Chest X-Ray 08/03/25 21:40 IMPRESSION: 1. No acute pulmonary findings. Discharge Plan Discharge Clinical Impression: Gastroenteritis, Bloody diarrhea Patient Disposition: Home Condition: Stable Instructions: Antibiotic Form, Gastroenteritis (DC) Additional Instructions: Follow-up with your primary care provider. Symptoms likely secondary to bacterial versus viral gastroenteritis. No intra-abdominal infection or concerning laboratory findings. We will send you with several days of antibiotics and nausea controlling medications. Return with any emergencies. Patient Language: Emirati Prescriptions: New ciprofloxacin HCl 750 mg tablet 750 mg PO DAILY 3 Days Qty: 3 0RF dicyclomine 20 mg tablet 20 mg PO TID PRN (Reason: abdominal pain) Qty: 14 0RF ondansetron 4 mg tablet,disintegrating 4 mg PO Q8H PRN (Reason: nausea and vomiting) Qty: 20 0RF No Action montelukast 10 mg tablet 10 mg PO DAILY fluticasone propionate 50 mcg/actuation spray,suspension 1 spray intranasal DAILY Rx Instructions: administer into each nostril meclizine 25 mg tablet 25 mg PO DAILY atorvastatin 20 mg tablet 20 mg PO DAILY estradiol 1 mg tablet 1 mg PO DAILY Qty: 90 1RF medroxyprogesterone [Provera] 2.5 mg tablet 2.5 mg PO DAILY Qty: 90 3RF Follow-up/Referrals: Hayde,MD Yaya [Primary Care Provider, Unknown] Time of Disposition: 03:16
[2025-08-03] MEDS: LACTATED RINGERS 1,000 ML 999 ML IV CONT (23:56)
[2025-08-03] MEDS: MORPHINE SULFATE (*CRX) 4 MG/ML INJ IV PUSH (23:57)
[2025-08-03] MEDS: ONDANSETRON INJ 4 MG/2 ML VIAL IV PUSH (23:57)
[2025-08-04] VITALS (22 sets, daily range): BP systolic 116–134; BP diastolic 57–72; PULSE 68–79; RESP 12–22; O2SAT 90–100
[2025-08-04] MEDS: CIPROFLOXACIN 500 MG TAB PO (03:24)
== END 2025-08-04 03:27 | disposition home or self-care (01) ==
PROVIDERS: Emergency Provider Student in an Organized Health Care Education/Training Program; PCP Internal Medicine
DX: K52.9 Noninfective gastroenteritis and colitis, unspecified (principal); K92.1 Melena; G62.9 Polyneuropathy, unspecified; M19.90 Unspecified osteoarthritis, unspecified site; M06.00 Rheumatoid arthritis without rheumatoid factor, unspecified site; E78.00 Pure hypercholesterolemia, unspecified; Z96.612 Presence of left artificial shoulder joint; Z87.891 Personal history of nicotine dependence; Z90.49 Acquired absence of other specified parts of digestive tract; R94.31 Abnormal electrocardiogram [ECG] [EKG]
CPT/HCPCS: 36415; 71046; 74177; 80053; 84484; 85025; 85610; 85730; 86850; 86900; 86901; 93005; 96361; 96374; 96375; 99284; A9270; J2270; J2405; J7120; Q9967